=== PATIENT | male | born 1955 | race Caucasian/White ===

== ENCOUNTER → 2017-05-23 | Outpatient (CLI) | payer OTHER ==
[2016-06-13 16:03] VITALS: BP 147/87
[~2017-05-23] MED LIST: GADOBUTROL 7.5 MMOL/7.5 ML VIAL IV ONE; PRED20TA PO; VALA1000 PO
[2017-05-23 12:38] LABS: GFR 75.7
--- NOTE | 2017-05-23 13:55 | RAD ---
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 Additional sagittal T1, axial FLAIR, and axial T2 weighted imaging of the entire brain was obtained. Additional axial T1-weighted imaging of the entire brain was obtained after the administration of gadolinium-based intravenous contrast material. Further 3 mm axial and coronal T1-weighted imaging was obtained the region of the internal auditory canal, both before and after the administration of intravenous contrast. FINDINGS: There are a few small foci of FLAIR signal hyperintensity which are nonspecific but probably related to minimal chronic small vessel ischemic disease. There is no abnormal enhancement identified. Specifically, no abnormal enhancement is seen in the region of the internal auditory canal on either side. Otic capsule structures are unremarkable. No restricted diffusion is seen to indicate an acute infarct. There is no evidence of intracranial hemorrhage. Specifically, no abnormal susceptibility is seen on gradient echo images to indicate a microhemorrhage. No extra-axial fluid collections are identified. There is no mass effect or midline shift. Ventricular size is within normal limits. Midline structures have a normal anatomic configuration. Pituitary gland and infundibulum are within normal limits. Basal cisterns are patent. Flow voids are preserved at the skull base. Cerebellum and posterior fossa structures are unremarkable. Globes and orbits are within normal limits. Paranasal sinuses and mastoid air cells are clear. 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 IMPRESSION: Unremarkable MR examination of internal auditory canals. No abnormality of the otic capsule structures is seen and no regions of abnormal enhancement are identified. Electronically signed by: Taj Panchal MD (05/23/2017 1:51 PM)
== END | disposition home or self-care (01) ==
LOC: MRI 12:00
PROVIDERS: ATTEND Otolaryngology
DX: H90.42 Sensorineural hearing loss, unilateral, left ear, with unrestricted hearing on the contralateral side (principal); I10 Essential (primary) hypertension; E11.9 Type 2 diabetes mellitus without complications
CPT/HCPCS: 36415; 70553; 82565; A9585